=== PATIENT | female | born 1985 | race Caucasian/White ===

== ENCOUNTER 2021-06-28 08:15 | Inpatient (IN) ==
[2021-06-28] MEDS ORDERED: OXYTOCIN 30 UNITS/500 ML BAG IV PRN ×3 (08:29→18:40)
--- NOTE | 2021-06-28 08:34 | History & Physical Report ---
Date of Service June 28, 2021 Assessment & Plan (1) Supervision of elderly multigravida: (2) Gestational diabetes mellitus (GDM) affecting , antepartum: (3) Grand multipara: (4) with 39 completed weeks gestation: Plan: admit for labor. plan pitocin induction, arom as indicated, epidural on demand. anticipate . Admission and Anticipated Discharge Date Admission Date: June 28, 2021 History of Present Illness Chief Complaint: presents for elective induction Primary Care Provider: Johnathan Russell Patient is a 35yowf with iup at39 3/7 weeks who presents for induction. She had a recent ultrasound with concern for lga baby and it is her 7th baby. Patient notes good fm. no lof/vb. and Delivery Plans GDM in prior *Monthly AC US's @ 24wks. on for induction at 39 weeks for suspected lga 06/28. AMA *Weekly NST's @ 36wks. BMI >35 *nsts at 36wks, * 32 wk growth us Placental Accessory Lobe *growth scan 32 weeks Grand Multip Hx of lga delivery--last baby was 9# OB Labs: Blood Type A Positive 11/26/20 Antibody Screen NEGATIVE 11/26/20 Hemoglobin 11.4 g/dL (12.0-16.0) L 04/17/21 Hematocrit 34.2 % (37-47) L 04/17/21 Mean Corpuscular Volume 86.3 fL (80-100) 01/22/21 Platelet Count 184 K/uL (130-400) 01/22/21 Rubella IgG Antibody Immune (Immune) 11/26/20 Rapid Plasma Reagin Nonreactive (Nonreactive) 11/26/20 Hepatitis B Surface Antigen Neg (Neg) 11/26/20 HIV (1&2) Ab and P24 Ag, 4th Gener Neg (Neg) 11/26/20 OB Optional Labs: Chlamydia trachomatis RNA NOT DETECTED (NOT DETECTED) 11/26/20 Neisseria gonorrhoeae RNA NOT DETECTED (NOT DETECTED) 11/26/20 declined genetics. Allergies Allergy/AdvReac Type Severity Reaction Status Date / Time No Known Allergies Allergy Mild Verified 06/27/21 15:25 Home Medications Medication Instructions Recorded Confirmed Type prenat.vits,arlyn,jvw-tova-xhmjw 1 tab PO DAILY 11/13/20 06/27/21 History ascorbic acid (vitamin C) PO 02/15/21 06/27/21 History ferrous sulfate 325 mg PO DAILY 02/15/21 06/27/21 History Patient History Medical History Gestational diabetes Surgical History History of cholecystectomy History of wisdom tooth extraction Family History Mother Endometriosis Sister Endometriosis Other Depression Diabetes Dyslipidemia Hypertension Social History Smoking Status: Never smoker Hx Alcohol Use: No Hx Substance Use: No Preferred Language: Danish marital status: marital status details: Dipesh (39) [phone] Current Living Situation: Spouse Current Living Situation Comment: lives with spouse and kids, 3 outdoor cats current occupational status: unemployed Feels Safe at Home: Yes OB History Del. DateGA wksLbr LgthBirth wtSexType delAnesPlaceDel ProvPreterm?Comment 10/07/07 39 7lb 5ozFNSVDType unknownMNMCDr. OliverNo 06/12/09 39 6lb 14ozFNSVDType unknownMNMCDr. OsheaNoPacenta Previa 08/02/11 39 7lb 5ozFNSVDNoneMNMCDr DoucetteNo 08/21/12 7Aborted-Spontaneous 01/18/14 39 7lb 1ozFNSVDEpiduralMNMCNo 09/26/15 40 8lb 2ozMNSVDNoneMNMCDr. HardykNo 11/09/17 40 9lb 0oz.FNSVDEpiduralMNMCDr. 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
[2021-06-28 08:52] LABS: Hematocrit (blood only) 33.8 % (37-47); Hemoglobin 11.3 g/dL (12.0-16.0); Mean Corpuscular Hemoglobin 30.6 pg (25-34); Mean Corpuscular Hgb Conc 33.4 g/dL (32-36); Mean Corpuscular Volume 91.6 fL (80-100); Platelet Count 170 K/uL (130-400); RDW Coefficient of Variation 14.1 % (11.5-14.5); Red Blood Count 3.69 M/uL (4.2-5.4); White Blood Count 7.87 K/uL (4.8-10.8)
[2021-06-28] MEDS: LACTATED RINGER'S 1,000 ML IV PRN ×2 (09:26→11:51)
--- NOTE | 2021-06-28 10:24 | Medical Student H&P ---
Date of Service June 28, 2021 Assessment & Plan (1) Supervision of elderly multigravida: Plan: Hilary Russell is a 35 yo , with a history of insulin controlled GDM presenting for induction of labor. IOL - Admit for labor, induce with Pitocin - AROM as discussed - Epidural on demand - Anticipate GDM, antepartum, controlled with insulin - Check BG levels Q6h - Monitor for symptoms (2) Gestational diabetes mellitus (GDM) affecting , antepartum: (3) Grand multipara: (4) with 39 completed weeks gestation: Admission and Anticipated Discharge Date Admission Date: June 28, 2021 History of Present Illness Chief Complaint: Induction of Labor Primary Care Provider: Johnathan Russell Evelina Russell is a 35 yo at 39 weeks and 3/7 days gestation, with a histor y of GDM controlled with insulin, who presents to the hospital for induction of labor. Her last menstrual period was 09/25/20, and estimated delivery date based on LMP is 07/02/20. She scheduled this IOL 3 weeks ago based on starting insulin for GDM. Additionally, recent u/s showed a baby large for gestational age. She has been having contractions for 3 days, and last night had bloody tinged mucus and mucus plug. She has had no fluid or bleeding. She has noted increased movements, no loss of movements. Her history includes all vaginal deliveries, with her last being induced. She had GDM for her past two pregnancies, controlled with diet. She had placenta previa with babies 4 and 5. She had one spontaneous in between babies 3 and 4. She had no defects in previous pregnancies or other complications. Allergies Allergy/AdvReac Type Severity Reaction Status Date / Time No Known Allergies Allergy Mild Verified 06/27/21 15:25 Home Medications Medication Instructions Recorded Confirmed Type prenat.vits,arlyn,hhq-osyd-wdsml 1 tab PO DAILY 11/13/20 06/28/21 History ascorbic acid (vitamin C) 500 mg PO DAILY 02/15/21 06/28/21 History ferrous sulfate 325 mg PO DAILY 02/15/21 06/28/21 History insulin NPH isoph U-100 human 100 25 unit SUBCUT HS 06/28/21 06/28/21 History unit/mL subcutaneous suspension (Novolin N NPH U-100 Insulin isophane) insulin regular human 100 unit/mL 1 sliding scale dose SUBCUT 06/28/21 06/28/21 History injection solution (Novolin R USEASDIRECTD Regular U-100 Insulin) Patient History Medical History Gestational diabetes Surgical History History of cholecystectomy History of wisdom tooth extraction Family History Mother Endometriosis Sister Endometriosis Other Depression Diabetes Dyslipidemia Hypertension Social History Smoking Status: Never smoker Hx Alcohol Use: No Hx Substance Use: No Preferred Language: Welsh Communication Ability: Effective 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 Beliefs That Will Affect Care: None marital status: marital status details: Dipesh (39) [phone] Current Living Situation: Spouse Current Living Situation Comment: lives with spouse and kids, 3 outdoor cats current occupational status: unemployed Feels Safe at Home: Yes Safety Concerns: Feels Safe At This Time Assistive Devices: None OB History G8, P6016; ages- 3,5,7,9,12,13 No hx of infertility 6 vaginal births, 1 spontaneous (between baby 3 and 4) IOL with baby 6 Hx of LGA Largest baby: 10 lb, last baby 9 lbs complications: Hx of placenta previa with babies 4 and 5 Hx of GDM with current and baby 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 Exclusively uses menstrual cups. IMB: none Postcoital bleeding: none No hx of STD/STI infections No hx of abnormal Paps. Last pap: 06/2020. No hx of stock speculator procedures/surgeries Does not use contraception, no plans for contraception in the future Review of Systems no fever, chills, night sweats no vision change, scotomas no headache, sore throat, congestion, cough no sob, wheezing Additional Comments: no chest pain, no palpitations no abd pain outside contractions, no n/v/d no burning or dysuria, no hematuria no myalgias or joint pain no numbness, paresthesias, weakness not feeling down or depressed Physical Exam 2 Constitutional: WN/WD, sitting comfortably in bed in no acute distress Eyes: PERRL, no scleral icterus ENMT: Oral and pharyngeal mucosa moist, non-erythematous. Neck: Trachea midline, no thyromegaly. No lymphadenopathy. Respiratory: Good respiratory effort, no use of accessory muscles. CTA in all 6 lung cih. Cardiovascular: reg rate and rhythm, normal S1, S2, no m/r/g. Good capillary refill. Minimal LE edema. Gastrointestinal (Abdomen): Gravid abdomen. Soft, non-tender. Musculoskeletal: Minimal LE edema. No erythema, warmth, calf pain. No clonus. Neurologic: CN II-XII intact. Psychiatric: Appropriate mood and affect. Results & Data ([facility]) Vital Signs (Past 12 Hours) Vital Signs Temp Pulse Resp BP 06/28/21 10:01 100 H 131/88 06/28/21 08:59 36.7 C 93 H 20 132/72 06/28/21 08:32 36.7 C 93 H 20 132/72
[2021-06-28] MEDS ORDERED: BUPIVACAINE 0.25% 30 ML VIAL ONE ×2 (11:13→17:44)
[2021-06-28] MEDS ORDERED: ePHEDrine sulfate 50 MG/ML AMP ONE (11:13)
[2021-06-28] MEDS ORDERED: SODIUM CHLORIDE 0.9% INJ 10 ML VIAL ONE ×2 (11:13→17:48)
[2021-06-28] MEDS ORDERED: fentaNYL 2MCG/ML ROPIVACAINE 1.25MG/ML 100 ML BAG EPI ONE (11:14)
[2021-06-28] MEDS ORDERED: fentaNYL citrate 100 MCG/2 ML VIAL ONE ×2 (11:14→17:45)
[2021-06-28] MEDS ORDERED: ePHEDrine sulfate 50 MG/ML AMP IV PRN (11:33)
[2021-06-28] MEDS ORDERED: fentaNYL 2MCG/ML ROPIVACAINE 1.25MG/ML 100 ML BAG EPI PRN (11:33)
[2021-06-28] MEDS ORDERED: diphenhydrAMINE 50 MG/ML VIAL IV PRN (11:33)
[2021-06-28] MEDS ORDERED: NALOXONE HCL 1 MG in SODIUM CHLORIDE 0.9% 1000ML 1,000 ML IV PRN (11:33)
[2021-06-28] MEDS ORDERED: ONDANSETRON INJ 2 MG/ML 2 ML VIAL IV PRN (11:33)
[2021-06-28] MEDS ORDERED: NALOXONE HCL 0.4 MG/1 ML VIAL/CARP IV PRN (11:33)
[2021-06-28] MEDS ORDERED: NALBUPHINE HCL INJ 10 MG/ML AMP IV PRN (11:33)
--- NOTE | 2021-06-28 11:51 | Anesthesiology Consultation ---
Date of Service June 28, 2021 Assessment & Plan (1) Encounter for pre-operative examination: Chart Review Chart Review: Patient NOT seen in Pre Admission Testing and Acceptable Risk for Labor Epidural Consults Requested none History Height/Weight Height: 5 ft 3.5 in Weight: 105.233 kg Allergies Allergy/AdvReac Type Severity Reaction Status Date / Time No Known Allergies Allergy Mild Verified 06/27/21 15:25 Medications Home Medications Medication Instructions Recorded Confirmed Last Taken prenat.vits,arlyn,rqw-igpw-nrlme 1 tab PO DAILY 11/13/20 06/28/21 06/27/21 ascorbic acid (vitamin C) 500 mg PO DAILY 02/15/21 06/28/21 06/26/21 23:30 ferrous sulfate 325 mg PO DAILY 02/15/21 06/28/21 06/27/21 insulin NPH isoph U-100 human 100 25 unit SUBCUT HS 06/28/21 06/28/21 06/27/21 23:59 unit/mL subcutaneous suspension (Novolin N NPH U-100 Insulin isophane) insulin regular human 100 unit/mL 1 sliding scale dose SUBCUT 06/28/21 06/28/21 06/28/21 07:05 injection solution (Novolin R USEASDIRECTD Regular U-100 Insulin) Active Medications Generic Name Dose Route Start Last Admin Trade Name Freq PRN Reason Stop Dose Admin Oxytocin 30 units in 500 mls @ 10 mls/hr 06/28/21 08:29 06/28/21 11:30 Pitocin IV 06/30/21 08:28 0.6 units/hr .Q24H PRN 10 mls/hr Labor Induction/Augmentation Titration Protocol 0.6 UNITS/HR Lactated Ringer's 1,000 mls @ 125 mls/hr 06/28/21 08:29 06/28/21 11:15 Lr IV 06/30/21 08:28 999 mls/hr .Q8H PRN Infusion L&D Protocol Protocol Past Medical History Medical History Gestational diabetes Exercise / Class Metabolic Activity II 4-5 Yardwork/Stairs/Walk up hill Past Family History Family History Mother Endometriosis Sister Endometriosis Other Depression Diabetes Dyslipidemia Hypertension Past Surgical History Surgical History History of cholecystectomy History of wisdom tooth extraction Past Anesthesia History No Hx of Anesthesia Complications and No Family Hx of Anesthesia Complications History of PONV No Hx of PONV and No Hx of Motion Sickness Social History Smoking Status: Never smoker Hx Alcohol Use: No Hx Substance Use: No substance use type: does not use Physical Exam Vital Signs Last Vital Signs Temp 36.7 C 06/28/21 08:59 Pulse 85 06/28/21 11:29 Resp 18 06/28/21 10:29 BP 126/72 06/28/21 11:00 Pulse Ox 99 06/28/21 11:29 Testing Laboratory Results 06/28/21 08:38 Blood Type A Positive 06/28/21 08:38 Antibody Screen NEGATIVE 06/28/21 08:38 06/28/21 06/28/21 06/28/21 11:03 10:03 08:48 POC Glucose 83 79 100 H
--- NOTE | 2021-06-28 12:58 | Labor Progress Brief Note ---
Date of Service June 28, 2021 Subjective comfortable after epidural Assessment & Plan (1) with 39 completed weeks gestation: (2) Grand multipara: (3) Supervision of elderly multigravida: (4) Gestational diabetes mellitus (GDM) affecting , antepartum: Plan: sugars are wnl, arom now. continue pit. fetus category one. anticipate . Admission and Anticipated Discharge Date Admission Date: June 28, 2021 Physical Exam Physical Exam: cx--3-4/75/-2 arom--clear fluid toco--3-4, pit at 14 efm--135 with mod variability, accels to 160s., no decels Results & Data ([facility]) Vital Signs (Past 12 Hours) Vital Signs Temp Pulse Resp BP Pulse Ox 06/28/21 12:54 95 H 100 06/28/21 12:49 84 98 06/28/21 12:48 80 103/62 06/28/21 12:44 79 98 06/28/21 12:39 83 100 06/28/21 12:34 85 100 06/28/21 12:32 88 106/60 06/28/21 12:29 82 99 06/28/21 12:28 81 96/56 L 06/28/21 12:24 79 98 06/28/21 12:23 77 108/57 L 06/28/21 12:19 89 111/60 100 06/28/21 12:14 88 109/65 98 06/28/21 12:09 103 H 100 06/28/21 12:07 82 114/56 L 06/28/21 12:05 96 H 112/56 L 06/28/21 12:04 98 H 99 06/28/21 12:03 93 H 105/59 L 06/28/21 12:01 93 H 103/63 06/28/21 11:59 84 104/62 99 06/28/21 11:57 93 H 113/59 L 06/28/21 11:55 105 H 128/73 06/28/21 11:54 96 H 100 06/28/21 11:53 84 105/55 L 06/28/21 11:51 85 105/63 06/28/21 11:49 94 H 122/76 100 06/28/21 11:44 99 H 100 06/28/21 11:39 103 H 100 06/28/21 11:34 93 H 100 06/28/21 11:29 85 99 06/28/21 11:00 86 126/72 06/28/21 10:29 18 06/28/21 10:01 100 H 131/88 06/28/21 08:59 36.7 C 93 H 20 132/72 06/28/21 08:32 36.7 C 93 H 20 132/72 Coding Level of Care Code None Diagnoses with 39 completed weeks gestation Z3A.39 Grand multipara Z64.1 Supervision of elderly multigravida O09.529 Gestational diabetes mellitus (GDM) affecting , antepartum O24.419
--- NOTE | 2021-06-28 16:13 | Labor Progress Brief Note ---
Date of Service June 28, 2021 Subjective got a little uncomfortable and now better. Just drained bladder. Assessment & Plan (1) with 39 completed weeks gestation: (2) Grand multipara: (3) Gestational diabetes mellitus (GDM) affecting , antepartum: Plan: iupc placed, evaluate contractions. fetus reassuring. aim for mvus >200. Admission and Anticipated Discharge Date Admission Date: June 28, 2021 Physical Exam Physical Exam: cx--4-5/75/-2 toco--qq2-4 min, pit at 20 efm--130s with mod variability, accels present, rare variable Results & Data ([facility]) Vital Signs (Past 12 Hours) Vital Signs Temp Pulse Resp BP Pulse Ox 06/28/21 16:09 99 H 98 06/28/21 16:04 89 99 06/28/21 16:03 78 120/58 L 06/28/21 15:59 82 100 06/28/21 15:54 81 99 06/28/21 15:49 84 99 06/28/21 15:48 77 128/59 L 06/28/21 15:44 80 100 06/28/21 15:39 81 100 06/28/21 15:34 87 99 06/28/21 15:33 85 133/75 06/28/21 15:29 81 99 06/28/21 15:24 77 98 06/28/21 15:19 76 96 06/28/21 15:18 75 113/58 L 06/28/21 15:14 76 97 06/28/21 15:09 87 100 06/28/21 15:04 92 H 100 06/28/21 15:03 88 121/60 06/28/21 15:00 37.0 C 20 06/28/21 14:59 92 H 100 06/28/21 14:54 75 98 06/28/21 14:49 93 H 101/56 L 99 06/28/21 14:44 81 98 06/28/21 14:39 82 98 06/28/21 14:34 78 97 06/28/21 14:33 70 100/55 L 06/28/21 14:29 87 97 06/28/21 14:24 81 97 06/28/21 14:19 78 98 06/28/21 14:18 85 113/54 L 06/28/21 14:14 86 99 06/28/21 14:09 86 96 06/28/21 14:04 91 H 98 06/28/21 14:03 85 115/63 06/28/21 13:59 84 97 06/28/21 13:54 81 97 06/28/21 13:49 78 97 06/28/21 13:48 79 108/62 06/28/21 13:44 74 97 06/28/21 13:39 80 97 06/28/21 13:34 77 107/61 96 06/28/21 13:29 82 96 06/28/21 13:24 80 97 06/28/21 13:19 86 99 06/28/21 13:18 91 H 116/66 06/28/21 13:14 85 99 06/28/21 13:09 86 99 06/28/21 13:04 89 99 06/28/21 13:03 88 99/62 L 06/28/21 12:59 88 98 06/28/21 12:54 95 H 100 06/28/21 12:49 84 98 06/28/21 12:48 36.6 C 80 20 103/62 06/28/21 12:44 79 98 06/28/21 12:39 83 100 06/28/21 12:34 85 100 06/28/21 12:32 88 106/60 06/28/21 12:29 82 99 06/28/21 12:28 81 96/56 L 06/28/21 12:24 79 98 06/28/21 12:23 77 108/57 L 06/28/21 12:19 89 111/60 100 06/28/21 12:14 88 109/65 98 06/28/21 12:09 103 H 100 06/28/21 12:07 82 114/56 L 06/28/21 12:05 96 H 112/56 L 06/28/21 12:04 98 H 99 06/28/21 12:03 93 H 105/59 L 06/28/21 12:01 93 H 103/63 06/28/21 11:59 84 104/62 99 06/28/21 11:57 93 H 113/59 L 06/28/21 11:55 105 H 128/73 06/28/21 11:54 96 H 100 06/28/21 11:53 84 105/55 L 06/28/21 11:51 85 105/63 06/28/21 11:49 94 H 122/76 100 06/28/21 11:44 99 H 100 06/28/21 11:39 103 H 100 06/28/21 11:34 93 H 100 06/28/21 11:29 85 99 06/28/21 11:00 86 126/72 06/28/21 10:29 18 06/28/21 10:01 100 H 131/88 06/28/21 08:59 36.7 C 93 H 20 132/72 06/28/21 08:32 36.7 C 93 H 20 132/72 Coding Level of Care Code None Diagnoses with 39 completed weeks gestation Z3A.39 Grand multipara Z64.1 Gestational diabetes mellitus (GDM) affecting , antepartum O24.419
[2021-06-28] MEDS ORDERED: oxyCODONE/ACETAMINOPHEN 5mg/325mg TAB PO PRN (18:28)
[2021-06-28] MEDS ORDERED: BENZOCAINE 20% AER SPR 82.5 GM CAN EXT PRN (18:28)
[2021-06-28] MEDS ORDERED: bisacodyL 10 MG SUPP PR PRN (18:28)
[2021-06-28] MEDS ORDERED: HYDROCORTISONE ACETATE 25 MG SUPP PR PRN (18:28)
--- NOTE | 2021-06-28 18:33 | Delivery Summary ---
Vaginal Delivery Summary Date of Service June 28, 2021 Vaginal Delivery Summary Pre-operative Diagnosis: at 39 3/7 gdm grand multip hx of lga babies Post-operative Diagnosis: same Procedure: pitocin epidural arom iupc EBL: 300cc Anesthesia: epidural Procedure: Admitted and underwent pitocin for induction. Got epidural and then arom for clear fluid. Progressed quickly after iupc placed to c/c/+2. The patient pushed for one contraction to deliver a viable female in dena position. The nose and mouth were bulb suctioned on the perineum and the rest of the was then delivered without difficulty. The baby was vigorous. The nose and mouth were again bulb suctioned and the was placed in the maternal abdomen for drying and attention. Cord was clamped and cut at one minute of life. Cord blood and segment obtained. Placenta delivered spontaneous, intact with a three vessel cord. Eploration of the uterus showed no further placenta noted. Cervix/sulci/rectum/perineum were intact. Hemostasis obtained with dilute pitocin and fundal massage. Apgars were 9/9. Mother and baby doing well at the end of the delivery. [facility] Vaginal Delivery Charge Delivery Type Details: [facility]
--- NOTE | 2021-06-28 19:39 | Anesthesia Procedure Note ---
Date of Service June 28, 2021 Anesthesia Post Epidural Note Vital Signs Vital Signs: Temp Pulse Resp BP Pulse Ox 36.9 C 83 20 115/58 L 99 06/28/21 17:00 06/28/21 19:35 06/28/21 17:00 06/28/21 19:35 06/28/21 18:24 Notes Mental Status: alert / awake / arousable and participated in evaluation Patient Amnestic to Procedure: No Nausea / Vomiting: adequately controlled Pain: adequately controlled Airway Patency, RR, SpO2: stable & adequate BP & HR: stable & adequate Hydration State: stable & adequate Neuraxial Anesthesia: was administered and sensory block is resolving Anesthetic Complications: no major complications apparent and Pt Satisfied with anesthetic care Epidural: Removed without complications and With tip intact
[2021-06-28] MEDS ORDERED: DOCUSATE SODIUM 100 MG CAP PO SCH (21:00)
[2021-06-28] MEDS: IBUPROFEN 600 MG TAB PO PRN (23:23)
[2021-06-28] MEDS: ACETAMINOPHEN 325 MG TAB PO PRN (23:24)
[2021-06-29] MEDS: IBUPROFEN 600 MG TAB PO PRN ×2 (03:57→07:18)
--- NOTE | 2021-06-29 05:50 | Obstetrical Progress Note ---
Date of Service June 29, 2021 Assessment & Plan (1) Vaginal delivery: Doing well. Wants to go home at 24 hours. Routine pp care. Day #:: 2 Subjective Ambulation: ambulating normally Voiding: no voiding problems Passing Gas:: Yes Diet Tolerance:: regular diet Lochia:: Small Feeding Type:: breast feeding Physical Exam Constitutional WD/WN, vitals as above Cardiovascular Extremities: + edema (trace); no calf tenderness Gastrointestinal (Abdomen) soft, nt, nd ff/nt at u Psychiatric A+Ox3, euthymic affect Results & Data ([facility]) Vital Signs (Past 12 Hours) Vital Signs Temp Pulse Pulse Resp BP BP Pulse Ox 06/29/21 03:55 36.7 C 87 14 109/72 06/29/21 00:56 36.9 C 96 H 18 107/71 06/28/21 21:45 37.1 C 93 H 20 125/77 98 06/28/21 21:20 93 H 100/63 06/28/21 21:05 88 109/59 L 06/28/21 20:50 115 H 121/58 L 06/28/21 20:35 96 H 118/58 L 06/28/21 20:20 95 H 107/65 06/28/21 20:05 84 103/57 L 06/28/21 19:50 85 112/59 L 06/28/21 19:35 83 115/58 L 06/28/21 19:20 93 H 122/81 06/28/21 19:05 91 H 114/74 06/28/21 18:50 95 H 111/59 L 06/28/21 18:24 112 H 99 06/28/21 18:19 125 H 100 06/28/21 18:14 106 H 100 06/28/21 18:09 89 100 06/28/21 18:07 95 H 129/74 06/28/21 18:04 99 H 189/80 H 100 06/28/21 18:01 106 H 157/80 H 06/28/21 17:59 96 H 146/78 H 100 06/28/21 17:57 99 H 130/81 06/28/21 17:55 94 H 131/79 06/28/21 17:54 99 H 140/86 100 06/28/21 17:49 99 H 128/72 100
[2021-06-29 06:42] LABS: Hematocrit (blood only) 32.2 % (37-47); Hemoglobin 10.5 g/dL (12.0-16.0)
[2021-06-29] MEDS: ACETAMINOPHEN 325 MG TAB PO PRN ×2 (07:18→14:53)
[2021-06-29] MEDS ORDERED: PRENATAL VITAMIN 1 TAB PO SCH (08:00)
[2021-06-29] MEDS ORDERED: DIPHTHERIA/TETANUS/PERTUSSIS 0.5 ML SYR/VIAL IM ONE (08:00)
[2021-06-29] MEDS ORDERED: bisacodyL 5 MG TABEC PO SCH (20:00)
== END 2021-06-29 19:45 | disposition home or self-care (01) | DRG 807 ==
LOC: 4S1 08:28 → 4S2 21:40

== ENCOUNTER 2025-05-16 07:42 | Inpatient (IN) ==
[2025-05-16] MEDS ORDERED: LIDOCAINE 1% LOCAL 20 ML VIAL INFIL PRN (07:53)
[2025-05-16] MEDS ORDERED: OXYTOCIN 30 UNITS/NSS 30 UNITS/500 ML BAG IV PRN ×2 (07:53→16:19)
[2025-05-16 08:24] LABS: Hematocrit (blood only) 29.6 % (37.0-47.0); Hemoglobin 10.2 g/dL (12.0-16.0); Mean Corpuscular Hemoglobin 29.7 pg (25.0-34.0); Mean Corpuscular Volume 86.0 fL (80.0-100.0); Platelet Count 194 K/uL (130-400); RDW Standard Deviation 45.3 fL (36.4-46.3); Red Blood Count 3.44 M/uL (4.20-5.40); White Blood Count 7.76 K/ul (4.8-10.8)
[2025-05-16] MEDS ORDERED: SODIUM CHLORIDE 0.9% 100 ML IV PRN (09:07)
[2025-05-16] MEDS: OXYTOCIN 30 UNITS/NSS 30 UNITS/500 ML BAG IV PRN (09:16)
[2025-05-16] MEDS: LACTATED RINGER'S 1,000 ML IV PRN (09:16)
[2025-05-16] MEDS ORDERED: BUPIVACAINE 0.25% PF 30 ML VIAL EPI PRN (10:20)
[2025-05-16] MEDS ORDERED: NALOXONE HCL 1 MG in SODIUM CHLORIDE 0.9% 1,000 ML IV PRN (10:20)
[2025-05-16] MEDS ORDERED: NALBUPHINE HCL INJ 10 MG/ML AMP IV PRN (10:20)
[2025-05-16] MEDS ORDERED: fentANYL 2 MCG/ML BUPIVacaine 0.125%-NSS 100ML BAG EPI PRN (10:20)
[2025-05-16] MEDS ORDERED: LIDOCAINE 2% MPF LOCAL 5 ML VIAL EPI PRN (10:20)
[2025-05-16] MEDS ORDERED: diphenhydrAMINE 50 MG/ML VIAL IV PRN (10:20)
[2025-05-16] MEDS ORDERED: SODIUM CHLORIDE 0.9% PF INJ 10 ML VIAL EPI PRN (10:20)
[2025-05-16] MEDS ORDERED: NALOXONE HCL 0.4 MG/1 ML VIAL/CARP IV PRN (10:20)
[2025-05-16] MEDS ORDERED: ROPIVACAINE 0.5% PF 5 MG/ML 20 ML VIAL EPI PRN (10:20)
--- NOTE | 2025-05-16 10:49 | History & Physical Report ---
Date of Service May 16, 2025 Assessment & Plan (1) Encounter for induction of labor: (2) Obesity affecting : (3) Gestational diabetes mellitus (GDM) affecting , antepartum: (4) Supervision of elderly multigravida: Plan admit, iv, labs. bsgs in labor. start pit, leiva placed. arom when able. fhts categ 1. Admission and Anticipated Discharge Date Admission Date: May 16, 2025 History of Present Illness Chief Complaint: induction of labor. Primary Care Provider: Johnathandevan Russell 39yo at 39+wks ega presents to LD for planned induction of labor. No rom, vb. +FM. No ctx. PNC c/b 1. GDM, last efw 90% 2. AMA 3. Obesity OBH: x 7, largest 9# GYNH: nl paps no stds. Allergies Allergy/AdvReac Type Severity Reaction Status Date / Time No Known Allergies Allergy Mild Verified 05/15/25 10:04 Home Medications Medication Instructions Recorded Confirmed Type ascorbic acid (vitamin C) 1 tab PO DIRECTED 10/21/24 05/16/25 History ferrous sulfate [Iron (ferrous 1 tab PO DIRECTED 10/21/24 05/16/25 History sulfate)] prenat.vits,arlyn,ars-bgju-oiizf 1 tab PO DIRECTED 10/21/24 05/16/25 History Patient History Medical History Abnormal uterine bleeding (AUB) Endometrial mass Heartburn Morbid obesity Surgical History History of cholecystectomy (2009) History of wisdom tooth extraction Family History Mother Depression Endometriosis Hypertension Sister Endometriosis Father Diabetes Hypertension Other Dyslipidemia No family history of adverse response to anesthesia Denies family history of Ovarian cancer Breast cancer Colorectal cancer Social History Smoking Status: Never smoker Second Hand Exposure: No; Do You Dip or Chew Tobacco: No; Hx Alcohol Use: No Hx Substance Use: No Preferred Language: Maldivian Communication Ability: Effective 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 Beliefs That Will Affect Care: None marital status: marital status details: Dipesh (43) [phone] Current Living Situation: Spouse and Family Current Living Situation Comment: lives with spouse and kids, 5 outdoor cats, 2 dogs current occupational status: unemployed 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 Other Information That Helps Us Care for You: No Feels Safe at Home: Yes Safety Concerns: Feels Safe At This Time Assistive Devices: None Review of Systems as per Subjective / HPI Physical Exam Constitutional: WD/WN, vitals as above Gastrointestinal (Abdomen): soft gravid nt efw 8-9# Musculoskeletal: tr edema nontender calves Neurologic: grossly normal Psychiatric: A+Ox3, euthymic affect Genitourinary: OB Exam Abdomen: + vertex (by u/s) Manual OB Exam: + cervical dilation fingertip, + cervical effacement 50% and + station high OB Exam Monitor Tracing: + external FHT monitor used, + external uterine monitor u sed, + category I and + normal FHT variability PROCEDURE: sse cx visualized, grasped on ant lip with ring forcep, leiva through os and balloon inflated with 40cc sterile water. Spec removed, leiva taped to leg. pt bulmaro well. Results & Data Vital Signs (Past 12 Hours) Vital Signs Temp Pulse Resp BP 05/16/25 10:15 87 130/80 05/16/25 09:45 92 H 117/72 05/16/25 09:24 90 130/80 05/16/25 08:44 97.5 F L 16 05/16/25 08:04 97.5 F L 117 H 16 131/85 05/16/25 07:54 117 H 131/85 Coding Level of Care Code None Diagnoses Encounter for induction of labor Z34.90 Obesity affecting O99.210 Gestational diabetes mellitus (GDM) affecting , antepartum O24.419 Supervision of elderly multigravida O09.529 CPT Codes Misx Procedure Codes - 14366 Placement of cervical dilator: 32050 Placement of cervical dilator ([id number])
[2025-05-16] MEDS: BUPIVACAINE 0.25% PF 30 ML VIAL ONE (11:06)
[2025-05-16] MEDS: SODIUM CHLORIDE 0.9% PF INJ 10 ML VIAL ONE (11:06)
[2025-05-16] MEDS: LIDOCAINE 2%/EPINEPHRINE 1:200,000 20 ML PF ONE (11:06)
[2025-05-16] MEDS: fentANYL 2 MCG/ML BUPIVacaine 0.125%-NSS 100ML BAG ONE (11:08)
--- NOTE | 2025-05-16 11:13 | Anesthesiology Consultation ---
Date of Service May 16, 2025 Assessment & Plan Chart Review Chart Review: Acceptable Risk for Labor Epidural Consults Requested none ASA ASA2 Proposed Anesthesia Anesthesia Type: Labor Epidural Risk / Benefits Reviewed With: PT / POA / Parent / Guardian, Accepts Plan and Informed Consent Obtained History Height/Weight Height: 5 ft 4 in Weight: 104.326 kg Allergies Allergy/AdvReac Type Severity Reaction Status Date / Time No Known Allergies Allergy Mild Verified 05/15/25 10:04 Medications Home Medications Medication Instructions Recorded Confirmed Last Taken ascorbic acid (vitamin C) 1 tab PO DIRECTED 10/21/24 05/16/25 05/15/25 ferrous sulfate [Iron (ferrous 1 tab PO DIRECTED 10/21/24 05/16/25 05/15/25 sulfate)] prenat.vits,arlyn,edz-jooe-hmnyx 1 tab PO DIRECTED 10/21/24 05/16/25 05/15/25 Active Medications Generic Name Dose Route Start Last Admin Trade Name Freq PRN Reason Stop Dose Admin Oxytocin 30 units in 500 mls @ 7 mls/hr 05/16/25 07:53 05/16/25 10:45 Pitocin 30 Units/Nss IV 05/18/25 07:52 0.42 units/hr .Q24H PRN 7 mls/hr Labor Induction/Augmentation Titration Protocol 0.42 UNITS/HR Lactated Ringer's 1,000 mls @ 125 mls/hr 05/16/25 07:53 05/16/25 10:10 Lr IV 05/18/25 07:52 999 mls/hr .Q8H PRN Infusion L&D Protocol Protocol Past Medical History Medical History Abnormal uterine bleeding (AUB) Endometrial mass Heartburn Morbid obesity Past Family History Family History Mother Depression Endometriosis Hypertension Sister Endometriosis Father Diabetes Hypertension Other Dyslipidemia No family history of adverse response to anesthesia Denies family history of Ovarian cancer Breast cancer Colorectal cancer Past Surgical History Surgical History History of cholecystectomy (2009) History of wisdom tooth extraction Social History Smoking Status: Never smoker Do You Dip or Chew Tobacco: No Hx Alcohol Use: No Hx Substance Use: No substance use type: does not use Physical Exam Vital Signs Last Vital Signs Temp 36.8 C 05/16/25 11:00 Pulse 88 05/16/25 11:10 Resp 16 05/16/25 11:00 BP 119/72 05/16/25 11:10 Pulse Ox 100 05/16/25 11:08 Constitutional + obese; no acute distress ENMT Thyromental Distance: > or= 3.5 Finger Breadths Mallampati Class: II Neck normal visual inspection Respiratory normal respiratory effort Cardiovascular Rate/Rhythm: regular rate Musculoskeletal Spine: normal cervical ROM, + lumbar spine abnormal to inspection, no scoliosis and no lumbar spinal tenderness Neurologic moves all extremities Motor/Sensory: no sensory deficit Psychiatric Orientation: alert and oriented x 3 Testing Laboratory Results 05/16/25 08:03 05/16/25 09:48 POC Glucose 93
[2025-05-16] MEDS: BUPIVACAINE 0.25% PF 30 ML VIAL EPI STA (11:23)
[2025-05-16] MEDS: SODIUM CHLORIDE 0.9% PF INJ 10 ML VIAL EPI STA (11:24)
[2025-05-16] MEDS: LIDOCAINE 2%/EPINEPHRINE 1:200,000 20 ML PF EPI STA (11:24)
--- NOTE | 2025-05-16 12:58 | Labor Progress Brief Note ---
Date of Service May 16, 2025 Subjective comfortable with epidural. Assessment & Plan (1) Encounter for induction of labor: (2) Obesity affecting : (3) Gestational diabetes mellitus (GDM) affecting , antepartum: (4) Supervision of elderly multigravida: Plan will see how arom helps her labor pattern and progress. fhts categ 1. c/w pit. Admission and Anticipated Discharge Date Admission Date: May 16, 2025 Physical Exam Constitutional: WD/WN, vitals as above Respiratory: normal respiratory effort, lungs clear to auscultation Cardiovascular: Rate/Rhythm: regular rate and regular rhythm Genitourinary: Manual OB Exam: + cervical dilation 5 cm, + cervical effacement 50%, + station -2 and + amniotic fluid (arom) clear OB Exam Monitor Tracing: + external FHT monitor used, + external uterine monitor used, + category I and + normal FHT variability Results & Data Vital Signs (Past 12 Hours) Vital Signs Temp Pulse Resp BP Pulse Ox 05/16/25 12:48 84 100 05/16/25 12:45 90 16 135/80 05/16/25 12:43 87 100 05/16/25 12:41 89 91 05/16/25 12:38 91 H 100 05/16/25 12:33 87 100 05/16/25 12:30 80 16 134/80 05/16/25 12:28 85 100 05/16/25 12:23 88 100 05/16/25 12:18 84 100 05/16/25 12:17 92 H 91 05/16/25 12:15 83 16 133/82 05/16/25 12:13 77 99 05/16/25 12:08 84 97 05/16/25 12:03 85 100 05/16/25 12:02 71 127/69 05/16/25 12:00 18 05/16/25 11:58 84 100 05/16/25 11:53 82 100 05/16/25 11:48 79 100 05/16/25 11:46 85 127/82 05/16/25 11:45 16 05/16/25 11:43 96 H 89 L 05/16/25 11:38 85 100 05/16/25 11:33 78 100 05/16/25 11:30 16 05/16/25 11:30 81 16 138/83 05/16/25 11:28 80 100 05/16/25 11:27 82 135/86 05/16/25 11:26 81 84 L 05/16/25 11:23 100 05/16/25 11:23 86 05/16/25 11:23 85 120/78 05/16/25 11:18 83 100 05/16/25 11:16 86 107/57 L 05/16/25 11:15 16 05/16/25 11:15 16 05/16/25 11:13 81 100 05/16/25 11:10 88 119/72 05/16/25 11:08 87 100 05/16/25 11:05 93 H 126/73 05/16/25 11:03 89 100 05/16/25 11:02 88 127/76 05/16/25 11:00 16 05/16/25 11:00 98.2 F 16 05/16/25 10:59 106 H 136/83 05/16/25 10:58 108 H 100 05/16/25 10:56 99 H 137/90 05/16/25 10:53 94 H 140/89 99 05/16/25 10:49 94 H 140/85 05/16/25 10:15 87 130/80 05/16/25 09:45 92 H 117/72 05/16/25 09:24 90 130/80 05/16/25 08:44 97.5 F L 16 05/16/25 08:04 97.5 F L 117 H 16 131/85 05/16/25 07:54 117 H 131/85 Coding Level of Care Code None Diagnoses Encounter for induction of labor Z34.90 Obesity affecting O99.210 Gestational diabetes mellitus (GDM) affecting , antepartum O24.419 Supervision of elderly multigravida O09.529
--- NOTE | 2025-05-16 16:12 | Delivery Summary ---
Vaginal Delivery Summary Date of Service May 16, 2025 Vaginal Delivery Summary The patient dilated to complete and pushed to deliver a viable female Apgars 8 and 9 via over intact perineum. Mouth and nose bulb suctioned at perineum. Shoulders and body delivered with ease. was vigorous and crying at . Cord clamped at 30 seconds of life and to maternal abdomen where the cord was then doubly clamped and cut. Placenta delivered spontaneously and intact, three-vessel cord. Hemostasis achieved with dilute pitocin and uterine massage and drainage of the bladder for approximately 200 cc under sterile conditions. Cervix and sulci intact. QBL 162 cc. Mother and baby stable in recovery. [facility] Vaginal Delivery Charge Delivery Type Details:
[2025-05-16] MEDS ORDERED: DIPHTHER/TETAN/PERTUS Vaccine (Tdap, Adol/Adult) 0.5mL IM ONE (16:19)
[2025-05-16] MEDS ORDERED: HYDROCORTISONE ACETATE 25 MG SUPP PR PRN (16:19)
[2025-05-16] MEDS ORDERED: BENZOCAINE 20% SPRY 85 APPLN/85 GM CAN EXT PRN (16:19)
[2025-05-16] MEDS ORDERED: ACETAMINOPHEN 325 MG TAB PO PRN (16:19)
--- NOTE | 2025-05-16 20:49 | Anesthesia Procedure Note ---
Date of Service May 16, 2025 Anesthesia Post Epidural Note Vital Signs Vital Signs: Temp Pulse Resp BP Pulse Ox O2 Del Method 37 C 85 16 112/72 97 Room Air 05/16/25 19:30 05/16/25 19:30 05/16/25 19:30 05/16/25 19:30 05/16/25 19:30 05/16/25 19:30 Pain Intensity Bilateral Abdomen: Pain Intensity: 3 Notes Mental Status: alert / awake / arousable and participated in evaluation Nausea / Vomiting: adequately controlled Pain: adequately controlled Airway Patency, RR, SpO2: stable & adequate BP & HR: stable & adequate Hydration State: stable & adequate Neuraxial Anesthesia: was administered and sensory block is resolving Anesthetic Complications: no major complications apparent Epidural: Removed without complications and With tip intact
[2025-05-16] MEDS: DOCUSATE SODIUM 100 MG CAP PO SCH (21:46)
[2025-05-17] MEDS: IBUPROFEN 600 MG TAB PO PRN (04:51)
--- NOTE | 2025-05-17 06:45 | Obstetrical Progress Note ---
Date of Service May 17, 2025 Assessment & Plan (1) care following vaginal delivery: (2) Gestational diabetes mellitus (GDM) affecting , antepartum: (3) Morbid obesity: Plan 39 yo post- day 1 s/p . Fells well today. Vital signs stable Continue post- care Encourage ambulation and Pain controlled with ibuprofen Hgb stable Discharge home today, follow up with Dr. Macario in 6 weeks. Admission and Anticipated Discharge Date Admission Date: May 16, 2025 Supervising Physician Co-Signing Physician Notes Resident Physician Supervision Note: I interviewed and examined the patient. Discussed with Dr. Pace and agree with findings and plan as documented in the note. Any exceptions or clarifications a re listed here: stable doing well. eating, voiding, ambulating, bleeding decreased, breast feeding, baby is well, would like dc later today. exam cor rrr, lungs ctab, abd soft ff 2 down nt, ext nt calves. PPD#1 s/p , doing well. dc later. instructions reviewed. f/u 6 wk pp. breast, rhpos, ri. Documented By: Mei Macario MD, FACOG Subjective 39 yo post- day 1 s/p . Ambulation: ambulating normally Voiding: no voiding problems Passing Gas:: Yes Diet Tolerance:: regular diet Lochia:: Small Feeding Type:: breast feeding Current Pain Level:Slight Resting comfortably this AM in NAD. Denies LILLY, CP, SOB, N/V/D, LE pain/swelling. Review of Systems Review of Systems: As per HPI. Physical Exam Physical Exam: General: patient resting comfortably, NAD, non-toxic in appearance, AA&O x 4, answers questions appropriately. Skin: warm, dry, intact HEENT: NC/AT, anicteric sclera, conjunctiva without injection, moist mucus membranes. Heart: +S1/S2, regular, no m/r/g Lungs: equal air entry bilaterally, no rales/rhonchi/wheezes Abd: +BS, soft, NT/ND, uterine fundus firm at umbilicus. Ext: warm, no clubbing/cyanosis or edema, Ike's neg. Results & Data Vital Signs (Past 12 Hours) Vital Signs Temp Pulse Resp BP Pulse Ox O2 Del Method 05/17/25 04:30 36.5 C 74 16 110/70 97 Room Air 05/16/25 23:30 36.5 C 76 16 113/70 97 Room Air 05/16/25 19:30 37 C 85 16 112/72 97 Room Air Resident Activity Tracking Resident Involvement: Resident Care Provided Care Provided: Adult Hospital Medicine
[2025-05-17 07:41] VITALS: RESP 18
[2025-05-17] MEDS: PRENATAL VITAMIN 1 TAB PO SCH (08:05)
[2025-05-17 11:18] VITALS: O2SAT 97
[2025-05-17 15:11] VITALS: BP 117/75; PULSE 81; TEMP 97.5
== END 2025-05-17 17:00 | disposition home or self-care (01) | DRG 807 ==
LOC: 4S1 07:42 → 4E2 19:46